=== PATIENT | male | born 1965 | race Caucasian/White ===

== ENCOUNTER → 2016-09-09 | Outpatient (CLI) | payer OTHER ==
[~2016-09-09] MED LIST: ISOVUE-370 76% 100ML VIAL (Q9967) As Ordered ONE
--- NOTE | 2016-09-09 21:26 | REP ---
Clinical: Suspicious finding on recent chest x-ray. Correlation: Chest x-ray dated 08/10/2016 ([facility]) Technique: Axial contrast enhanced images from the thoracic inlet to the upper abdomen using 100 ml Isovue 370 intravenous contrast material with coronal and sagittal re-formations. Findings: The bilateral lung ridley are well-aerated, symmetric, and clear. No acute pulmonary parenchymal process is identified. No consolidation, nodule or mass lesion. No evidence for pleural effusion/reaction. No significant parenchymal scarring. The tracheobronchial tree is patent and without bronchiectasis. Mediastinum including heart/pericardium, thoracic aorta and pulmonary vasculature are normal. Specifically, there is no cardiomegaly, pericardial effusion, or evidence for aortic aneurysm/dissection. No significant adenopathy. Surrounding musculoskeletal structures are intact and normal. Limited evaluation of the upper abdomen demonstrates normal bilateral adrenal glands. Impression: Normal contrast enhanced chest CT. No mediastinal or pleuroparenchymal process identified. Signed by Eric Shepherd MD 09/09/2016 09:18 P
== END ==
LOC: M RAD 10:40
PROVIDERS: ATTEND Physician Assistant
DX: Z71.1 Person with feared health complaint in whom no diagnosis is made (principal)
CPT/HCPCS: 71260; Q9967